=== PATIENT | female | born 1970 | race Two or more races ===

== ENCOUNTER 2023-06-23 19:46 | Emergency (ER) | payer SELFPAY ==
[~2023-06-23] VITALS: Ht 172.7 cm; Wt 77.1 kg
[2023-06-23] MEDS ORDERED: KETOROLAC TROMETHAMINE INJ 30 MG/ML VIAL ONE (20:50)
[2023-06-23] MEDS ORDERED: KETOROLAC TROMETHAMINE INJ 60 MG/2 ML VIAL IM ONE (21:00)
[2023-06-23] MEDS ORDERED: IBUP800T54 PO (21:48)
[2023-06-23 22:08] VITALS: BP 120/80; TEMP 98.6; O2SAT 100
== END 2023-06-23 22:08 | disposition home or self-care (01) ==
LOC: ER 20:00
DX: M25.552 Pain in left hip (principal); M25.562 Pain in left knee; R10.2 Pelvic and perineal pain; W01.0XXA Fall on same level from slipping, tripping and stumbling without subsequent striking against object, initial encounter; Y93.89 Activity, other specified; Y92.89 Other specified places as the place of occurrence of the external cause; Y99.8 Other external cause status
CPT/HCPCS: 99285; 74176; 96372; 73564; J1885

== ENCOUNTER 2025-07-08 13:45 | Emergency (ER) | payer OTHER ==
[~2025-07-08] VITALS: Ht 165.1 cm; Wt 82.6 kg
[~2025-07-08 13:45] MED LIST: IBUP800T54 PO
[2025-07-08] MEDS ORDERED: IBUP-1957 PO (15:50)
[2025-07-08] MEDS ORDERED: ACET325C7 PO (15:50)
[2025-07-08] MEDS ORDERED: LIDO30AD10 TP (15:50)
[2025-07-08] MEDS ORDERED: METH-649 PO (15:51)
[2025-07-08] MEDS: KETOROLAC TROMETHAMINE 15 MG/ML VIAL IM ONE (16:00)
[2025-07-08] MEDS ORDERED: KETOROLAC TROMETHAMINE 15 MG/ML VIAL ONE (16:08)
[2025-07-08 16:15] VITALS: BP 125/71; TEMP 98; O2SAT 99
== END 2025-07-08 16:15 | disposition home or self-care (01) ==
LOC: ER 13:59
DX: M25.562 Pain in left knee (principal); M25.511 Pain in right shoulder; M25.572 Pain in left ankle and joints of left foot; Z79.1 Long term (current) use of non-steroidal anti-inflammatories (NSAID); R00.2 Palpitations; W10.9XXA Fall (on) (from) unspecified stairs and steps, initial encounter; Y93.89 Activity, other specified; Y92.89 Other specified places as the place of occurrence of the external cause; Y99.9 Unspecified external cause status
CPT/HCPCS: 99284; 71045; 96372; 93005; 73610; 73630; 73564; 73030; J1885